=== PATIENT | male | born 1965 | race Caucasian/White ===

== ENCOUNTER 2016-08-21 16:05 | Inpatient (IN) | payer BC, OTHER ==
[~2016-08-21] VITALS: Ht 177.8 cm; Wt 84.4 kg
--- NOTE | ~2016-08-21 | EKG ---
[address] [address] ELECTROCARDIOGRAM REPORT Name: FAJARDOGAGE SALMOE Room #: 456-P [facility] IN M.R.#: [id number] Admission: 08/21/16 Attend Phys: Sharif Townsend DO Discharge: 08/23/16 Date of : 69 Report #: [id number] THIS REPORT FOR: //name// [facility] ED Test Date: 2016-08-21 Test Time: 17:24:57 Pat Name: GAGE FAJARDO Department: Room: 456 Gender: M Dining Room Helper: BINU : 1965 Requested By: Hugo Haines Order Number: [id number] MD: Gonsalo Perez Measurements Intervals [place] Rate: 123 P: 10 MA: 150 QRS: 32 QRSD: 92 T: -39 QT: 333 QTc: 477 Interpretive Statements Sinus tachycardia Probable left atrial enlargement Left ventricular hypertrophy Borderline T abnormalities, inferior leads Borderline prolonged QT interval No previous ECG available for comparison Electronically Signed On 08-25-2016 21:53:49 CDT by Gonsalo Perez [email or web address] <ELECTRONICALLY SIGNED> By: Gonsalo Perez MD 08/25/16 2153 [id number] Gonsalo Perez MD /EPI
--- NOTE | ~2016-08-21 | 2DMMODE ---
[address] [address] [facility] [place] [address] 2 D/M-MODE ECHOCARDIOGRAM Name: GAGE FAJARDO Room #: 456-P [facility] IN ..#: [id number] Admission: 08/21/16 Attend Phys: Sharif Townsend, Discharge: Date of : 69 Date of Service: 08/22/16 1019 Report #: [id number] THIS REPORT FOR: //name// APPROVED REPORT Study performed: 08/22/2016 08:09:13 EXAM: Comprehensive 2D, Doppler, and color-flow Echocardiogram Patient Location: Bedside Room #: 456 Other Information Study Quality: Adequate Indications Congestive Heart Failure Hypertension/HDD 2D Dimensions RVDd: 44.26 mm LVEF(%): 20.33 (>50%) IVSd: 14.84 (7-11mm) LVOT Diam: 20.89 (18-24mm) LVDd: 50.33 mm PWd: 13.92 (7-11mm) Ascending Ao: 32.12 (22-36mm) LVDs: 45.66 (25-40mm) Aortic Root: 32.11 mm IVC: 17.00 mm Hunter's LVEF: 20.33 % Volumes Left Atrial Volume (Systole) Single Plane 4CH: 49.00 mL Single Plane 2CH: 76.92 mL LA ESV Index: 32.00 mL/m2 Aortic Valve AoV Peak Chucky.: 1.00 m/s AO Peak Gr.: 3.98 mmHg LVOT Max P.31 mmHg LVOT Max V: 0.76 m/s ORTIZ Vmax: 2.61 cm2 Mitral Valve IVRT: 101.50 ms Pulmonary Valve PV Peak Chucky.: 0.61 m/s PV Peak Gr.: 1.51 mmHg [facility] [place] [address] [place] [address] 2 D/M-MODE ECHOCARDIOGRAM Name: FAJARDOGAGE SALOME Room #: 456-P [facility] IN .R.#: [id number] Admission: 08/21/16 Attend Phys: Sharif Townsend, Discharge: Date of : 69 Date of Service: 08/22/16 1019 Report #: [id number] Tricuspid Valve RAP Estimate: 5.00 mmHg Left Ventricle Left ventricle is at the upper limits of normal. Global left ventricular dysfunction Moderate concentric left ventricular hypertrophy. Left ventricular systolic function is severely reduced. LVEF 20-25%. Unable to assess diastolic function due to tachycardia. Right Ventricle Right ventricle is dilated. Right ventricular systolic function is grossly normal. Atria Left atrium is dilated. Right atrium is dilated. Aortic Valve The aortic valve is normal in structure. Trace aortic regurgitation. There is no aortic valvular stenosis. Mitral Valve The mitral valve is normal in structure. Moderate mitral regurgitation No evidence of mitral valve stenosis. Tricuspid Valve The tricuspid valve is normal in structure. Trace tricuspid regurgitation. RAP is estimated at 5 mmHg. Unable to assess PA pressure. Pulmonic Valve The pulmonary valve is normal in structure. Trace pulmonic regurgitation. Great Vessels The aortic root is normal in size. IVC is normal in size and collapses >50% with inspiration. Pericardium There is no pericardial effusion. Pleural effusion is present. <Conclusion> Left ventricular systolic function is severely reduced. Global left ventricular dysfunction LVEF 20-25%. [facility] [place] [address] 2 D/M-MODE ECHOCARDIOGRAM Name: FAJARDOGAGE Room #: 456-P [facility] IN M.R.#: [id number] Admission: 08/21/16 Attend Phys: Sharif Townsend, Discharge: Date of : 69 Date of Service: 08/22/16 1019 Report #: [id number] The aortic valve is normal in structure. Trace aortic regurgitation, no stenosis. The mitral valve is normal in structure. Moderate mitral regurgitation Pulmonary atery pressure could not be reliably ascertained There is no pericardial effusion. <ELECTRONICALLY SIGNED> By: Ash Chang MD, [facility] 08/22/16 1019 1019 1019 Ash Chang MD, FACC /INF
[~2016-08-21 16:05] MED LIST: BACTRIM DS TAB1 EACH PO; CLEOCIN HCL150 MG PO; HYDROCODONE-AP1 EAC6 PO; KEFLEX500 MG PO; LISINOPRIL20 MG PO
[2016-08-21 16:07] VITALS: BP 147/109
[2016-08-21 17:27] LABS: ABSOLUTE NEUTROPHILS 12.6 thou/uL (1.4-8.2); BASOPHILS 0.5 % (0.0-2.0); EOSINOPHILS 0.8 % (0.0-3.0); HEMATOCRIT 42.1 % (42.0-52.0); HEMOGLOBIN 13.8 gm/dL (14.0-18.0); LYMPHOCYTES 10.9 % (24.0-44.0); MANUAL DIFF NO; MCH 29.3 pg (26.0-34.0); MCHC 32.8 g/dL (28.0-37.0); MCV 89.3 fL (80.0-100.0); MONOCYTES 6.8 % (1.0-8.0); PLATELET COUNT 349 thou/uL (150-400); RBC 4.71 mil/uL (4.50-6.00); WBC 15.6 thou/uL (4.0-11.0)
[2016-08-21 17:35] LABS: ANION GAP 7 mmol/L (7-16); BUN 24 mg/dL (7-18); CALCIUM 9.3 mg/dL (8.5-10.1); CHLORIDE 107 mmol/L (98-107); CO2 27 mmol/L (21-32); GLUCOSE 102 mg/dL (74-106); POTASSIUM 4.4 mmol/L (3.5-5.1); SODIUM 141 mmol/L (136-145)
[2016-08-21 17:36] LABS: URINE BLOOD NEGATIVE (Negative); URINE COLOR YELLOW; URINE GLUCOSE-RANDOM* NEGATIVE (Negative); URINE KETONES 1+ (Negative); URINE NITRITE NEGATIVE (Negative); URINE PROTEIN (DIPSTICK) 1+ (Negative); URINE SPECIFIC GRAVITY 1.025 (1.003-1.035); URINE UROBILINOGEN 0.2 E.U./dl (0.2-1.0)
[2016-08-21 17:37] LABS: ICTOTEST (BILI CONFIRMATORY) Negative (Negative); URINE BILIRUBIN NEGATIVE (Negative)
[2016-08-21 17:47] LABS: ALBUMIN 3.3 g/dL (3.4-5.0); ALKALINE PHOSPHATASE 107 U/L (46-116); NT-PRO BRAIN NAT PEPTIDE 4471 pg/mL (<300); SGOT 31 U/L (15-37); SGPT 64 U/L (30-65); TOTAL BILIRUBIN 0.8 mg/dL (<0.1-1.0); TOTAL PROTEIN 6.9 g/dL (6.4-8.2); TROPONIN-I < 0.04 ng/mL (<0.04-0.07)
[2016-08-21 17:47] LABS: BACTERIA 1-9 Few /HPF (None Seen); CASTS None Seen /LPF (None Seen); CRYSTALS None Seen /LPF (None Seen); SQUAMOUS 0-3 Few /LPF (0-3); URINE RBC 0-2 Rare /HPF (0-2); URINE WBC 6-15 Few /HPF (0-5)
[2016-08-21 20:04] VITALS: BP 154/103
[2016-08-21 20:15] VITALS: BP 156/113
[2016-08-21 22:15] VITALS: BP 157/100
[2016-08-21 22:30] VITALS: BP 145/99
[2016-08-21 23:45] VITALS: BP 156/101
[2016-08-22] VITALS: BP 140/90
[2016-08-22 04:00] VITALS: BP 126/86
[2016-08-22 12:02] VITALS: BP 129/94
[2016-08-22 19:14] VITALS: BP 132/89
[2016-08-22 21:08] LABS: CALCIUM 9.2 mg/dL (8.5-10.1); CREATININE 1.4 mg/dL (0.7-1.3); POTASSIUM 3.8 mmol/L (3.5-5.1)
[2016-08-22 21:09] LABS: MAGNESIUM 2.1 mg/dL (1.8-2.4)
[2016-08-23 03:13] VITALS: BP 136/96
[2016-08-23 03:59] LABS: ABSOLUTE NEUTROPHILS 8.4 thou/uL (1.4-8.2); BASOPHILS 0.7 % (0.0-2.0); EOSINOPHILS 3.1 % (0.0-3.0); HEMATOCRIT 42.2 % (42.0-52.0); HEMOGLOBIN 14.3 gm/dL (14.0-18.0); LYMPHOCYTES 16.1 % (24.0-44.0); MCV 88.3 fL (80.0-100.0); MONOCYTES 8.8 % (1.0-8.0); PLATELET COUNT 323 thou/uL (150-400); POLYS 71.3 % (36.0-66.0); RBC 4.79 mil/uL (4.50-6.00); RDW 14.2 % (10.5-14.5); WBC 11.7 thou/uL (4.0-11.0)
[2016-08-23 04:01] LABS: MANUAL DIFF NO
[2016-08-23 04:10] LABS: CREATININE 1.1 mg/dL (0.7-1.3); POTASSIUM 3.7 mmol/L (3.5-5.1)
[2016-08-23] MEDS ORDERED: COREG6.25 MG PO (08:12)
[2016-08-23 08:14] VITALS: BP 145/106
[2016-08-23] MEDS ORDERED: CARVEDILOL6.25 MG PO (09:05)
[2016-08-23] MEDS ORDERED: ALDACTONE25 MG PO (09:06)
[2016-08-23] MEDS ORDERED: K-DUR 20 MEQ T20 MEQ PO (09:07)
[2016-08-23] MEDS ORDERED: LASIX 40 MG TAB40 M1 PO (09:07)
[2016-08-23] MEDS ORDERED: ENTRESTO 24 MG1 EACH PO (09:09)
[2016-08-23 09:29] VITALS: BP 145/106
== END 2016-08-23 10:31 | disposition home or self-care (01) | DRG 293 ==
LOC: ER 16:05 → 4W 18:33 → EROBS 18:33 → 4W 20:05
PROVIDERS: Family Medicine; Internal Medicine; Physician Assistant
DX: I11.0 Hypertensive heart disease with heart failure (principal); F17.210 Nicotine dependence, cigarettes, uncomplicated; I16.0 Hypertensive urgency; I50.21 Acute systolic (congestive) heart failure; M54.9 Dorsalgia, unspecified; G89.29 Other chronic pain; F43.10 Post-traumatic stress disorder, unspecified; J30.2 Other seasonal allergic rhinitis; Z82.49 Family history of ischemic heart disease and other diseases of the circulatory system; Z79.899 Other long term (current) drug therapy; Z71.6 Tobacco abuse counseling
CPT/HCPCS: 10045

== ENCOUNTER → 2019-02-17 | Outpatient (CLI) | payer OTHER ==
[~2019-02-17] MED LIST changes: +ALDACTONE25 MG PO; +CARVEDILOL6.25 MG PO; +COREG6.25 MG PO; +ENTRESTO 24 MG1 EACH PO; +K-DUR 20 MEQ T20 MEQ PO; +LASIX 40 MG TAB40 M1 PO
== END ==
LOC: SJCVC 16:05
DX: I11.0 Hypertensive heart disease with heart failure (principal); I50.32 Chronic diastolic (congestive) heart failure; E78.5 Hyperlipidemia, unspecified; F17.210 Nicotine dependence, cigarettes, uncomplicated; Z79.899 Other long term (current) drug therapy; Z88.8 Allergy status to other drugs, medicaments and biological substances

== ENCOUNTER → 2019-08-19 | Outpatient (CLI) | payer OTHER | LOC: SJCVC 13:43 | PROVIDERS: ATTEND Internal Medicine | DX: I11.0 Hypertensive heart disease with heart failure (principal); I50.32 Chronic diastolic (congestive) heart failure; I50.20 Unspecified systolic (congestive) heart failure; E78.5 Hyperlipidemia, unspecified; F17.210 Nicotine dependence, cigarettes, uncomplicated; Z79.899 Other long term (current) drug therapy ==

== ENCOUNTER → 2020-02-21 | Outpatient (CLI) | payer OTHER | LOC: SJCVC 14:27 | PROVIDERS: ATTEND Internal Medicine | DX: I11.0 Hypertensive heart disease with heart failure (principal); I50.32 Chronic diastolic (congestive) heart failure; E78.5 Hyperlipidemia, unspecified; F17.210 Nicotine dependence, cigarettes, uncomplicated; Z79.899 Other long term (current) drug therapy ==

== ENCOUNTER → 2020-08-29 | Outpatient (CLI) | payer OTHER | LOC: SJCVC 12:37 | PROVIDERS: ATTEND Internal Medicine | DX: I11.0 Hypertensive heart disease with heart failure (principal); I50.32 Chronic diastolic (congestive) heart failure; E78.5 Hyperlipidemia, unspecified; F17.210 Nicotine dependence, cigarettes, uncomplicated; Z79.899 Other long term (current) drug therapy; Z88.8 Allergy status to other drugs, medicaments and biological substances ==